=== PATIENT | male | born 1950 | race Caucasian/White ===

== ENCOUNTER 2018-12-25 12:59 | Inpatient (IN) ==
[2018-12-25] MEDS ORDERED: BOOSTRIX VACCINE IM ONE (13:11)
[2018-12-25] MEDS ORDERED: ZOFRAN IV ONE (13:11)
[2018-12-25] MEDS ORDERED: DILAUDID IV ONE (13:11)
--- NOTE | 2018-12-25 13:17 | PROVIDER DOCUMENTATION ---
HPI-General Adult - General Chief Complaint: Fall Stated Complaint: FALL Time Seen by Provider: 12/25/18 13:12 Source: patient, EMS - History of Present Illness -Gen Adult Nature of Presenting Problems: Pt. 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 He reports no LOC and no pain or injury other than the left lower extremity. Pt. reports he is diabetic and his tetanus is not up to date. Location of Pain/Injury: reports: lower extremity (Left). denies: none, head, face, mouth, neck, chest, upper extremity, hand(s), abdomen, back, pelvis, genitalia, feet, upper body, lower body, generalized, other Pain Radiation: reports: no radiation. denies: arm(s), back, buttocks, chest, epigastric, feet, groin, jaw, flank (L), legs (lower), LLQ, LUQ, neck, periumbilical, flank (R), RLQ, RUQ, shoulder(s), scapula, scrotal, sternal notch, suprapubic, legs (upper), urethral, vaginal, other Quality of Pain: reports: aching. denies: burning, cramping, pressure, stabbing, tightness Severity: reports: severe. denies: mild, moderate Onset/Duration: reports: abrupt, just prior to arrival Timing: reports: still present. denies: gone now, intermittent, getting worse Context/Activities at Onset: reports: moderate activity, recent trauma history. denies: none, light activity, vigorous activity, recent emotional stress, recent physical stress, possible bad food, cold exposure, eating, out of country travel, rest, sleep, sexual activity, other Modifying Factors: improves with: immobilization. worse with: movement Associated Symptoms: reports: joint pain (Left lower extremity). denies: denies symptoms, anxiety, arm pain, back/neck pain, chest pain, constipation, cough, diaphoresis, diarrhea, dizziness, EENT symptoms, fatigue, fever/chills, genitourinary problems, headaches, heartburn, loss of appetite, malaise, muscle aches, sinus congestion/drainage, nausea, rash, seizure, shortness of breath, sensory/motor loss, pain with inspiration, swelling/mass in abdomen, syncope, vomiting, weakness, trouble walking, other Similar Symptoms Previously?: No Recently seen or treated by another doctor?: No Review of Systems - Adult - REVIEW OF SYSTEMS - ADULT Constitutional: reports: no symptoms reported Eyes: reports: no symptoms reported Ears, Nose, Mouth & Throat: reports: no symptoms reported Cardiovascular: reports: no symptoms reported Respiratory: reports: no symptoms reported Gastrointestinal: reports: no symptoms reported Genitourinary: reports: no symptoms reported Musculoskeletal: reports: see HPI, joint pain (Left lower extremity). denies: back pain, muscle aches, neck pain Integumentary: reports: no symptoms reported Neurological: reports: no symptoms reported Psychiatric: reports: no symptoms reported Past History - Adult - PAST MEDICAL HISTORY-ADULT Review of Records: reports: Old Records Reviewed, Nursing Assessment Review, Medications Reviewed, Social history reviewed & non-contributory. - IMMUNIZATION STATUS Childhood Immunizations: See Nurse Assessment Flu Vaccine: See Nurse Assessment - FAMILY HISTORY Family History: reviewed, not pertinent - SOCIAL HISTORY Smoking: denies Physical Exam-General - PHYSICAL EXAM-ADULT Initial Vital Signs Reviewed: Yes - CONSTITUTIONAL General Appearance: alert, mild distress, obese. negative: anxious, slow to respond, obtunded, combative - EYES Eyes: PERRL/EOMI, pink conjunctivae - HEAD, EARS, NOSE, MOUTH & THROAT HENMT: normocephalic/atraumatic, moist mucous membranes - NECK Neck: non-tender, full range of motion, supple, normal inspection - RESPIRATORY Respiratory: lungs clear, normal breath sounds - CARDIOVASCULAR Cardiovascular: normal peripheral pulses, regular rate, rhythm, no edema - GASTROINTESTINAL (ABDOMEN) Abdominal Exam: normal bowel sounds, non tender, soft - LYMPHATIC Lymphatic: no adenopathy. negative: axilla node tender, cervical node tenderness - MUSCULOSKELETAL Back Exam: normal inspection, no CVA tenderness, no vertebral tenderness Extremity: deformity (Left lower extremity is deformed mid tibia), tenderness (Left lower extremity). negative: erythema, inflammation, swelling Peripheral Pulses: radial (R): 2+, radial (L): 2+ - SKIN Integumentary: normal color, normal turgor, warm/dry. negative: cyanosis, erythema, pallor, tenderness - NEUROLOGIC Neurologic: grossly normal, no motor/sensory deficits - PSYCHIATRIC Psych/Mental Status: normal mood/affect, normal thought content, normal thought process, oriented x 3. negative: anxious, paranoid, tearful Progress - PLAN OF CARE/RESULTS Progress/Plan/Lab Results: Vital Signs - 8 hr 12/25/18 13:01 Temperature 98.0 F Pulse Rate 84 Respiratory Rate 18 Blood Pressure 162/86 O2 Sat by Pulse Oximetry 99 Orders Category Date Time Status ANKLE COMPLETE LEFT [RAD] Stat Exams 12/25/18 13:12 Ordered LOWER LEG-LEFT [RAD] Stat Exams 12/25/18 13:12 Ordered Diph,Pertuss(Acell),Tet Vac/Pf [Boostrix Vaccine] Med 12/25/18 13:11 Once 0.5 ml IM .ONCE ONE Hydromorphone [Dilaudid] Med 12/25/18 13:11 Once 1 mg IV NOW ONE Ondansetron [Zofran] Med 12/25/18 13:11 Once 4 mg IV NOW ONE - XRAY 1 XRAY: Left XRAY Study: Tibia/Fibula XRAY Interpretation: Communuted tibia Fx and distal fibula Fx (Vince) - CONSULTS/PCP/HOSPITALIST Notification #1 *Consult/PCP/Hospitalist*: Dr. Brown Time Discussed: 13:45 Reason/Comments: Consult Consult Disposition: other (Admit to hospitilist and will do surgery tonight) #2 Consult: Scarlet Urias Time Discussed: 13:48 Reason/Comments: Admission Consult Disposition: Will see in ED, Admit Departure - Departure Date of Disposition Decision: 12/25/18 Time of Disposition Decision: 13:45 DIAGNOSIS: Tibia fracture Qualifiers: Encounter type: initial encounter Tibia location: shaft Fracture type: closed Fracture morphology: comminuted Fracture alignment: displaced Laterality: left Qualified Code(s): S82.252A - Displaced comminuted fracture of shaft of left tibia, initial encounter for closed fracture Fibula fracture Qualifiers: Encounter type: initial encounter Fibula location: distal Fracture type: closed Fracture morphology: unspecified fracture morphology Laterality: left Qualified Code(s): S82.832A - Other fracture of upper and lower end of left fibula, initial encounter for closed fracture Disposition: ADMITTED INPATIENT 09 Certified Medical Emergency: Emergent Condition: Stable - Critical Care Note This patient required my direct & personal management of CC.: No Attestation - Physician/ KYLIE Attestation Patient care was provided by Advanced Practice Provider:: Yes Advanced Practice Provider:: Honorio Clarke Advanced Practice Provider documentation review:: The Mid-level provider documentation, treatment plan and medical decision making was reviewed by the physician who agrees with all treatment and medical decision making by the MLP. The physician spent face to face time with patient:: No Advanced Practice Provider documentation review:: Supervising physician onsite and consulted in the evaluation and care of this patient. The physician did not have a face to face encounter with the patient.
[2018-12-25] MEDS ORDERED: DIPHTHERIA/TETANUS ADULT ONE (13:24)
--- NOTE | 2018-12-25 13:38 | Diag Imaging Result Doc PS360 ---
EXAM: LOWER LEG-LEFT 12/25/2018 HISTORY: injury TECHNIQUE: Left lower leg four views COMMENT: There is a comminuted fracture of the distal tibia and a fracture of the distal tibia which is also slightly comminuted. There is a fracture of the medial malleolus. Some hyperostosis of the posterior cortices of the tibia and fibula is present. There is plantar and dorsal spurring of the calcaneus. There are atherosclerotic calcifications. IMPRESSION: Fractures of the distal shafts of the tibia and fibula and the medial malleolus. Electronically signed by Buster Fisher 12/25/2018 1:36 PM
[2018-12-25 14:26] LABS: URINE SOURCE CLEAN CATCH
[2018-12-25 14:35] LABS: BILIRUBIN URINE NEGATIVE (NEGATIVE); BLOOD URINE MODERATE (NEGATIVE); COLOR YELLOW; GLUCOSE URINE NEGATIVE (NEGATIVE); KETONE URINE NEGATIVE (NEGATIVE); LEUKOCYTES URINE SMALL (NEGATIVE); NITRITE URINE NEGATIVE (NEGATIVE); PH URINE 5.5; PROTEIN URINE TRACE mg/dL (NEGATIVE); TURBIDITY URINE CLEAR (CLEAR); UROBILINOGEN URINE NORMAL (NORMAL)
[2018-12-25 14:36] LABS: BASO# 0.02 X1000 (0.0-0.2); BASO% 0.1 % (0.0-0.8); EOS# 0.07 X1000 (0.0-0.7); EOS% 0.4 % (0.0-10.0); HEMATOCRIT 40.6 % (42.0-52.0); HEMOGLOBIN 13.8 g/dL (14.0-18.0); IMM GRAN# 0.03 X1000 (0.0-0.04); IMM GRAN% 0.2 % (0.0-0.5); LYMPH# 1.16 X1000 (1.2-3.4); LYMPH% 6.7 % (20.5-51.1); MCV 85.3 FL (81-99); MONO# 0.85 X1000 (0.11-0.59); MONO% 4.9 % (1.7-9.3); MPV 9.7 FL (7.4-10.4); NEUT# 15.12 X1000 (1.4-6.5); NEUT% 87.7 % (42.2-75.2); PLT 239 X1000 (130-400); RBC 4.76 XMIL (4.7-6.1); RDW 14.2 % (11.5-14.5); WBC 17.25 X1000 (4.8-10.8)
[2018-12-25 14:43] LABS: UR EPITHELIAL CELLS <10 /HPF (<10); URINE BACTERIA NEGATIVE /HPF; URINE RBC 20-40 /HPF (<10)
[2018-12-25 14:52] LABS: URINE YEAST NONE SEEN
[2018-12-25 15:06] LABS: AGAP 18; BUN 22 mg/dL (8-22); CALCIUM 10.4 mg/dL (8.8-10.2); CHLORIDE 98 mmol/L (98-107); COSMO 288; CREATININE 0.9 mg/dL (0.7-1.2); ESTIMATED GFR > 60; GLUCOSE 185 mg/dL (70-104); POTASSIUM 4.3 mmol/L (3.5-5.1); SODIUM 140 mmol/L (136-145); TCO2 24 mmol/L (25-35); TOTAL BILIRUBIN 0.21 mg/dL (0.20-1.00)
[2018-12-25 15:07] LABS: ALB/GLOB RATIO 1.3; ALBUMIN 4.5 g/dL (3.5-5.0); ALKALINE PHOSPHATASE 62 U/L (32-122); GOT 21 U/L (10-34); GPT 23 U/L (10-44)
[2018-12-25] MEDS ORDERED: NS 1,000 ML IV ONE (15:32)
[2018-12-25] MEDS ORDERED: TYLENOL PO PRN (15:32)
[2018-12-25] MEDS ORDERED: MORPHINE IV PRN (15:32)
[2018-12-25] MEDS: HUMALOG SUBQ SCH (16:10)
[2018-12-25] MEDS ORDERED: KEFZOL 1 GM/D5W 1 GM/50 ML IVPB IV ONE (16:21)
--- NOTE | 2018-12-25 16:22 | HISTORY AND PHYSICAL ---
PRIMARY CARE PROVIDER: In [place]. CHIEF COMPLAINT: Left foot pain status post fall. HISTORY OF PRESENT ILLNESS: Mr. Grajeda is a 68-year-old gentleman who carries a past medical history of diabetes mellitus type 2, hypertension, hyperlipidemia. He reports that he is working out of town from [place]. He is working on a ship. He missed judged the step- down that was about 4 feet, felt like he landed wrong, and had immediate sharp pain to his left lower extremity. He was brought to the ED where he was found to have fractures of the distal shafts of the tibia and fibula and the medial malleolus. He does not report any dizziness, chest pain, or shortness of breath prior to his fall; it was just a misstep. He did not hit his head. He denies any headache, fever, chills, cough, chest pain, shortness of breath, dizziness, palpitations. No problems with urination or bowel movements. He will be admitted and taken to surgery this afternoon by Dr. Brown. We will place him on IV fluids, allow him occasional ice chips for dry mouth, as well as pain control. They did have trouble placing a regular Springer as well as a coude. We will have to notify surgery that he will need a Springer catheter placed while he is under. PAST MEDICAL HISTORY: 1. Diabetes mellitus. 2. Hypertension. 3. Hyperlipidemia. PAST SURGICAL HISTORY: 1. Left heart cath a couple years ago with clean arteries. 2. Right knee surgery. SOCIAL HISTORY: He lives in [place]. He is . He has 2 children that are grown and out of the house. No smoking. Occasional alcohol with a beer. No illicit drug use. 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 FAMILY HISTORY: Reviewed and noncontributory. ALLERGIES: No known drug allergies. HOME MEDICATIONS: 1. Cozaar 50 mg p.o. daily. 2. Hydrochlorothiazide 12.5 mg p.o. daily. 3. NPH 120 units subcutaneous daily. 4. Zocor 1 tablet p.o. daily. REVIEW OF SYSTEMS: Twelve-point review of systems completely negative except for those mentioned in the HPI. PHYSICAL EXAMINATION: VITAL SIGNS: Temperature is 97.5 degrees, heart rate 92, respirations 18, blood pressure 161/92, O2 is 95% on room air. GENERAL: Mr. Grajeda is a pleasant, 68-year-old male who is lying on the stretcher. He is currently getting his left lower extremity stabilized, in no acute distress. HEENT: Atraumatic, normocephalic. PERRL. NECK: Supple. Trachea midline. CARDIOVASCULAR: S1, S2 appreciated. No murmurs, gallops, rubs noted. RESPIRATORY: Lung sounds clear bilaterally. GASTROINTESTINAL: Soft, nontender, nondistended. Positive bowel sounds 4 quadrants. EXTREMITIES: Lower extremity, he is currently having it wrapped. He does have pedal pulses. He does have a small recent wound to the outside of his right toe. He believes this happened because he wears steel-toed boots when he misstepped, that was not there previously. SKIN: Warm, dry, and intact except for the left big toe wound that occurred during his misstep. NEUROLOGIC: No focal deficits noted. DIAGNOSTIC DATA: As per HPI. LABORATORY DATA: Currently pending. ASSESSMENT AND PLAN: 1. Fractures to the distal shaft of the tibia and fibula and the medial malleolus. Surgery per Dr. Brown. Will continue NPO status, IV fluids, pain management. 2. Diabetes mellitus. We will continue with patterned blood sugars, sliding scale insulin. 3. Hypertension. We will resume home medications when appropriate. 4. Hyperlipidemia. Will continue Zocor. 5. Further recommendations to follow physician evaluation, laboratory and diagnostic data. Patient seen and examined by me face to face, all the laboratory, vitals and images were reviewed, patient presented to the hospital with left lower extremity pain and deformity, this patient is from [place], while he was working here in town he fell, about 4 feet height and landed on his left leg, immediately he felt pain and came to the hospital, X Ray showed left tibia and perone fracture, on his shaft and malleolar area as well, orthopedic surgery will evaluate this patient, hopefully he will go for surgery later today or tomorrow, we will take care of his comorbidities, I agree with the RACING MECHANIC's assessment and plan. Andres Nash MD. Dictated by AMAN Dubose for Andres Galicia MD cc: MD Hao Saini MD [facility]
[2018-12-25] MEDS ORDERED: NEOSPORIN G.U. IRRIGANT ONE ×2 (17:13→17:36)
[2018-12-25] MEDS ORDERED: SENSORCAINE-MPF 0.5%/EPI 1:200,000 ONE (17:13)
[2018-12-25] MEDS ORDERED: KEFZOL 2 GM/D5W 2 GM/50 ML IVPB ONE (17:39)
[2018-12-25] MEDS ORDERED: DIPRIVAN 1% ONE (18:02)
[2018-12-25] MEDS ORDERED: QUELICIN (DOSE) ONE (18:04)
[2018-12-25] MEDS ORDERED: XYLOCAINE-MPF 2% ONE (18:04)
[2018-12-25] MEDS ORDERED: ROBINUL ONE (18:04)
[2018-12-25] MEDS ORDERED: FENTANYL ONE (18:33)
[2018-12-25] MEDS ORDERED: NEO-SYNEPHRINE ONE (19:10)
[2018-12-25] MEDS ORDERED: OFIRMEV 1000 MG/ISOTONIC SOLN 1,000 MG/100 ML BOTTLE ONE (19:57)
[2018-12-25] MEDS ORDERED: EPHEDRINE ONE (20:03)
[2018-12-25] MEDS ORDERED: ZOFRAN ONE (20:54)
[2018-12-25] MEDS ORDERED: DECADRON ONE (20:54)
[2018-12-25] MEDS ORDERED: DILAUDID PCA VIAL ONE (21:58)
[2018-12-25] MEDS ORDERED: NARCAN IV PRN (22:00)
[2018-12-25] MEDS ORDERED: DILAUDID-HP 30 MG in NS 27 ML IV PRN (22:00)
[2018-12-25] MEDS ORDERED: NARCAN 0.4 MG in LR 1,000 ML IV PRN (22:00)
[2018-12-25] MEDS ORDERED: ZOFRAN IV PRN (22:00)
--- NOTE | 2018-12-25 22:59 | OPERATIVE NOTE ---
PROCEDURE DATE: 12/25/2018 PREOPERATIVE DIAGNOSIS: Left leg comminuted segmental tibia fracture with a trimalleolar ankle fracture. POSTOPERATIVE DIAGNOSIS: Left leg comminuted segmental tibia fracture with a trimalleolar ankle fracture. PROCEDURE: Open reduction internal fixation of left trimalleolar ankle fracture and open reduction intramedullary nailing of left tibia fracture. ANESTHESIA: General. SURGEON: Hao Brown MD. ASSEMBLER SHOW MOTOR: Smiley Eduardo PA-C, who was present throughout the case whose assistance was critical for exposure, placement of the implant, and closure. Her assistance was necessary for successful completion of the case. BLOOD LOSS: Minimal. TOURNIQUET TIME: Approximately an hour and a half. DESCRIPTION OF PROCEDURE: Patient was brought to the operative suite and placed in supine position. After successful administration of general anesthesia, a well-padded tourniquet was placed on the left proximal thigh. The left lower extremity was prepped and draped in usual sterile fashion. The leg was exsanguinated. Tourniquet was insufflated to 350 torr. Attention was directed first to the posterior malleolar. It involved approximately one- half of the joint surface. We were able to reduce this with traction and dorsal flexion of the foot and then through stab incision, two 4.0 cannulated screw guide pins were placed across the fracture. Once these were verified to be in good position, proper lengths were measured, and then they were driven into place. Excellent purchase of the screws and reduction of the fracture was obtained. Attention was then directed to the lateral malleolus. A longitudinal incision was made overlying the lateral malleolus, being sure to protect the superficial peroneal nerve. The lateral malleolus fracture was then cleaned and reduced. It was found to be a comminuted fracture as well with 3 fragments. These were all reduced. Interfragmentary screws were placed and a 1/3 tubular plate was placed with 3 screws distally and 3 screws proximally on each end that were locking. Excellent reduction of the fibula was obtained as well. Attention was then directed to the medial malleolus fracture. A longitudinal incision was made overlying the medial malleolus, dissected sharply through the skin down to the fracture site. It was found to be a clean fracture and was well reduced, and therefore two 4.0 cannulated screws were placed across the fracture. Excellent reduction was obtained. Attention was then directed to the tibia. A longitudinal incision was made on the medial border of the patellar tendon, dissected sharply through the skin and peritenon and then through the fascia and then a guide pin was placed in the center of the tibia. Once this was positioned, it was reamed with a cannulated reamer, and a ball-tip guide pin was passed across the fracture site and buried in the distal metaphysis. The fracture was held reduced with a tenaculum clamp. Once this was achieved, the tourniquet was deflated, and the canal was serially reamed to a 11-2 to accept a 10 nail. It was measured to 330 mm. A 330 mm nail was then driven into place. Once it was verified to be in good position on AP and lateral images using the proximal guide through stab incisions, the proximal locking screws were placed. Then the proximal guide was removed. The knee was taken out into extension. The tenaculum was released, and then using the perfect circles technique through stab incisions medially, the distal locking screws were placed. Excellent reduction of the fractures and placement of the hardware was obtained on AP and lateral images. The wounds were all copiously irrigated. The fascia was all closed with 0 Vicryl suture. The skin edges were approximated with 2-0 Vicryl and closed with skin angel except for laterally where the skin was under significant tension, and there was significant swelling. Therefore, far-near, near-far retention sutures were placed at least in the middle portion of the incision. Angel were used to reinforce the repair. The leg was then cleaned, and a sterile dressing and a well-padded posterior splint with a stirrup and a cooling blanket was applied. The patient tolerated the procedure well without complication. At the end of the procedure, all counts were correct x2. The patient was transferred to the recovery room in stable condition. cc: MD YESICA Fuentes
[2018-12-26] MEDS: HUMALOG SUBQ SCH ×5 (01:49→20:39)
[2018-12-26] MEDS: KEFZOL 1 GM/D5W 1 GM/50 ML IVPB IV SCH ×3 (02:12→18:48)
[2018-12-26] MEDS: PERIDEX MT SCH ×3 (03:20→20:39)
[2018-12-26] MEDS: COZAAR PO SCH ×3 (03:20→20:39)
[2018-12-26] MEDS: LR 1,000 ML IV SCH ×3 (05:51→09:48)
[2018-12-26 06:27] LABS: BASO# 0.01 X1000 (0.0-0.2); BASO% 0.1 % (0.0-0.8); HEMATOCRIT 33.4 % (42.0-52.0); HEMOGLOBIN 11.1 g/dL (14.0-18.0); IMM GRAN# 0.02 X1000 (0.0-0.04); IMM GRAN% 0.2 % (0.0-0.5); LYMPH# 1.04 X1000 (1.2-3.4); LYMPH% 7.9 % (20.5-51.1); MCH 28.9 PG (27-31); MCHC 33.2 g/dL (33-37); MONO# 1.01 X1000 (0.11-0.59); MONO% 7.6 % (1.7-9.3); MPV 9.8 FL (7.4-10.4); NEUT# 11.15 X1000 (1.4-6.5); NEUT% 84.2 % (42.2-75.2); PLT 196 X1000 (130-400); RBC 3.84 XMIL (4.7-6.1); RDW 14.1 % (11.5-14.5); WBC 13.23 X1000 (4.8-10.8)
[2018-12-26 06:37] LABS: AGAP 11; BUN 16 mg/dL (8-22); CHLORIDE 98 mmol/L (98-107); COSMO 276; CREATININE 0.8 mg/dL (0.7-1.2); ESTIMATED GFR > 60; GLUCOSE 220 mg/dL (70-104); POTASSIUM 4.6 mmol/L (3.5-5.1); SODIUM 134 mmol/L (136-145); TCO2 25 mmol/L (25-35)
[2018-12-26 06:39] LABS: HEMOGLOBIN A1C 7.2 % (4.8-6.0)
--- NOTE | 2018-12-26 07:19 | ORTHOPAEDICS PROGRESS NOTE ---
DATE: 12/26/2018 SUBJECTIVE: Corey Grajeda is a 68-year-old male who is postoperative day 1 from an ORIF of his left ankle and intramedullary nailing of his left tibia. He has no complaints. His pain is controlled with his VP GLOBAL. His foot is elevated. He can flex and extend his toes. He has brisk capillary refill and intact sensation to light touch. His vital signs are stable. He is afebrile. ASSESSMENT: Stable status post day 1 from surgery of his left leg. PLAN: We will get therapy working with him today, try to get him mobile over the weekend. We will try to get him off of the VP GLOBAL and hopefully by the first part of the week, we will be able to get him back home to [place]. cc: Hao Brown MD
[2018-12-26] MEDS ORDERED: GLUCOPHAGE XR PO SCH (08:00)
[2018-12-26] MEDS: HUMULIN 70/30 SUBQ SCH ×2 (08:25→16:34)
[2018-12-26] MEDS: 1/2 NS 1,000 ML IV SCH (08:26)
[2018-12-26] MEDS ORDERED: NARCAN IV PRN (08:30)
[2018-12-26] MEDS ORDERED: DILAUDID PCA VIAL IV PRN (08:30)
[2018-12-26] MEDS ORDERED: NARCAN 0.4 MG in LR 1,000 ML IV PRN (08:30)
[2018-12-26] MEDS ORDERED: ZOFRAN IV PRN (08:30)
[2018-12-26] MEDS ORDERED: HUMULIN 70/30 SUBQ SCH (09:00)
[2018-12-26] MEDS: ZOCOR PO SCH (09:43)
[2018-12-26] MEDS: GLUCOPHAGE XR PO SCH (16:35)
[2018-12-26] MEDS: HYDROCHLOROTHIAZIDE PO SCH (16:35)
[2018-12-26] MEDS: ZOFRAN IV PRN (19:24)
--- NOTE | 2018-12-26 19:56 | PROGRESS NOTE ---
DATE: 12/26/2018 SUBJECTIVE: This patient is resting comfortably in bed. I evaluated this patient in the morning. I put this patient back on some of his home medications, and I readjusted others. He will receive insulin and also metformin. He is on a CLEANING AND WASHING EQUIPMENT OPERATOR pump. We will continue with same management. OBJECTIVE: Vital Signs: Temperature 98.3 degrees, pulse 91, respiratory rate 26, blood pressure 141/70, oxygen saturation 93% on room air. HEENT: Head normocephalic. No trauma. PERRLA. Neck: Supple. No JVD. No masses. Central trachea. Chest: Clear to auscultation. No wheezing. No rales. Abdomen: Soft, nontender, nondistended. No hepatosplenomegaly. Extremities: Left lower extremity with a splint. He is able to move his toes. I do not see any vascular or neurological problem. Neurological examination: The patient is alert and oriented x3. No focal deficits. LABORATORY DATA: WBC 13.2, hemoglobin 11.1, hematocrit 33.4, platelets 196,000. Sodium 134, potassium 4.6, chloride 98, bicarbonate 25, BUN 16, creatinine 0.8, glucose 220, calcium 9, hemoglobin A1c 7.2. ASSESSMENT AND PLAN: 1. Left comminuted segmental tibia fracture with trimalleolar ankle fracture, status post open reduction and internal fixation of the left trimalleolar ankle fracture and open reduction and intramedullary nailing of the left tibia fracture postoperative day #1. This patient seems to be tolerating the procedure well. He is on a CLEANING AND WASHING EQUIPMENT OPERATOR pump. He was not complaining of pain when I saw him. He is able to move his toes. I did not see any vascular or neurological problems. We will keep the extremity elevated as well. 2. Type 2 diabetes, hemoglobin A1c 7.1, well controlled. Continue with some of his home medications. 3. Hypertension. I put this patient back on losartan and also hydrochlorothiazide, which are the medications listed for this patient. 4. Hyperlipidemia. Continue with Zocor. The plan is to keep this patient probably this weekend. I would start with physical therapy. Orthopedic surgery on board. Hopefully, we also will stop the CLEANING AND WASHING EQUIPMENT OPERATOR pump at some point and continue with only as needed and p.o. medication. cc: Andres Galicia MD
[2018-12-27] MEDS: ZOFRAN IV PRN ×2 (00:14→04:39)
[2018-12-27] MEDS ORDERED: PHENERGAN IV PRN (01:23)
[2018-12-27] MEDS ORDERED: SODIUM CHLORIDE 0.9% INJ PRN (01:23)
[2018-12-27] MEDS: NS 1,000 ML IV SCH (05:38)
[2018-12-27] MEDS: LOVENOX SUBQ SCH (06:53)
[2018-12-27] MEDS: HUMULIN 70/30 SUBQ SCH ×2 (06:53→16:24)
[2018-12-27] MEDS: HUMALOG SUBQ SCH ×3 (06:54→16:26)
[2018-12-27] MEDS: GLUCOPHAGE XR PO SCH ×2 (08:13→16:23)
[2018-12-27] MEDS: PERIDEX MT SCH ×3 (08:13→21:00)
[2018-12-27] MEDS: ZOCOR PO SCH (08:15)
[2018-12-27] MEDS: COZAAR PO SCH ×3 (08:15→21:00)
[2018-12-27] MEDS ORDERED: PROTONIX PO ONE (10:02)
[2018-12-27 10:36] LABS: BASO# 0.01 X1000 (0.0-0.2); BASO% 0.1 % (0.0-0.8); HEMATOCRIT 31.8 % (42.0-52.0); HEMOGLOBIN 10.5 g/dL (14.0-18.0); IMM GRAN# 0.03 X1000 (0.0-0.04); IMM GRAN% 0.2 % (0.0-0.5); LYMPH# 1.15 X1000 (1.2-3.4); LYMPH% 7.9 % (20.5-51.1); MCH 29.2 PG (27-31); MCV 88.3 FL (81-99); MONO# 1.29 X1000 (0.11-0.59); MONO% 8.8 % (1.7-9.3); MPV 9.9 FL (7.4-10.4); NEUT# 12.11 X1000 (1.4-6.5); PLT 174 X1000 (130-400); RDW 14.2 % (11.5-14.5); WBC 14.59 X1000 (4.8-10.8)
[2018-12-27 10:58] LABS: AGAP 10; BUN 18 mg/dL (8-22); CALCIUM 8.1 mg/dL (8.8-10.2); CHLORIDE 92 mmol/L (98-107); COSMO 278; CREATININE 0.8 mg/dL (0.7-1.2); ESTIMATED GFR > 60; GLUCOSE 278 mg/dL (70-104); POTASSIUM 3.7 mmol/L (3.5-5.1); SODIUM 133 mmol/L (136-145); TCO2 31 mmol/L (25-35)
[2018-12-27] MEDS: HYDROCHLOROTHIAZIDE PO SCH (11:13)
--- NOTE | 2018-12-27 13:14 | PROGRESS NOTE ---
DATE: 12/27/2018 SUBJECTIVE: Patient is resting comfortably in bed. He had episodes of nausea and vomiting during the night. He believes it was due to his last meal yesterday night, but today he is tolerating p.o. I will put this patient on PPIs, and I will basically continue with same management for now. OBJECTIVE: Vital Signs: Temperature 97.8 degrees, pulse 104, respiratory rate 16, blood pressure 120/64, oxygen saturation 95% on room air. HEENT: Head normocephalic, no trauma. PERRLA. Neck: Supple. No JVD. No masses. Central trachea. Chest: Clear to auscultation. No wheezing. No rales. Abdomen: Soft, nontender, nondistended. No hepatosplenomegaly. Extremities: Left lower extremity with a splint. He is able to move his toes. I do not see any vascular or neurological problem at this moment. Neurological examination: The patient is alert and oriented x3. No focal deficits. LABORATORY: WBC 14.5, hemoglobin 10.5, hematocrit 31.8, platelets 174. Sodium 133, potassium 3.7, chloride 92, bicarbonate 31. BUN 18, creatinine 0.8, glucose 278, calcium 8.1. ASSESSMENT AND PLAN: 1. Left comminuted segmental tibia fracture with trimalleolar ankle fracture, status post open reduction and internal fixation of the left trimalleolar ankle fracture and open reduction and intramedullary nailing of the left tibia fracture postoperative day #2. This patient seems to be tolerating well the procedure. He is on a FOOD SERVER pump. He has not been complaining of pain too much. I do not see any vascular or neurological problems. 2. Type 2 diabetes. Hemoglobin A1c 7.1, is well controlled. The blood sugar has been elevated during this hospitalization, but he started having some episodes of nausea and vomiting during the night, so I will just monitor today and I will readjust this in the morning. 3. Hypertension. Continue with same management. 4. Hyperlipidemia. Continue with Zocor. The plan is to keep this patient over the weekend. We will start physical therapy. Orthopedic Surgery on board. We will remove the Springer catheter today. He has been placed on PPIs; we will readjust his medications in the morning again. cc: Andres Galicia MD
--- NOTE | 2018-12-27 14:10 | ORTHOPAEDICS PROGRESS NOTE ---
DATE: 12/27/2018 Mr. Grajeda is seen status post ORIF of his distal tibia and ankle fracture. Presently, he is doing well. Vital signs are stable. His splint is clean and dry. He appears to be motor and sensory intact. We will discontinue his Springer today. He still requiring his BOBBIN STRIPPER, and we will leave that until tomorrow. We will check him again tomorrow as needed. cc: Aubrey Coombs MD
[2018-12-28] MEDS: HUMALOG SUBQ SCH ×5 (04:42→22:04)
[2018-12-28] MEDS: LR 1,000 ML IV SCH (04:44)
[2018-12-28] MEDS: 1/2 NS 1,000 ML IV SCH (04:44)
[2018-12-28] MEDS: NS 1,000 ML IV SCH ×2 (04:44→07:46)
[2018-12-28] MEDS: PROTONIX PO SCH (06:17)
[2018-12-28] MEDS: LOVENOX SUBQ SCH (06:17)
[2018-12-28 06:27] LABS: BASO# 0.01 X1000 (0.0-0.2); BASO% 0.1 % (0.0-0.8); HEMATOCRIT 29.5 % (42.0-52.0); HEMOGLOBIN 9.6 g/dL (14.0-18.0); IMM GRAN# 0.03 X1000 (0.0-0.04); IMM GRAN% 0.2 % (0.0-0.5); LYMPH# 1.61 X1000 (1.2-3.4); LYMPH% 12.4 % (20.5-51.1); MCHC 32.5 g/dL (33-37); MCV 89.1 FL (81-99); MONO# 1.32 X1000 (0.11-0.59); MONO% 10.2 % (1.7-9.3); NEUT% 77.1 % (42.2-75.2); PLT 170 X1000 (130-400); RBC 3.31 XMIL (4.7-6.1); RDW 14.1 % (11.5-14.5); WBC 12.97 X1000 (4.8-10.8)
[2018-12-28 06:58] LABS: AGAP 5; BUN 16 mg/dL (8-22); CALCIUM 8.2 mg/dL (8.8-10.2); CHLORIDE 99 mmol/L (98-107); COSMO 283; CREATININE 0.7 mg/dL (0.7-1.2); ESTIMATED GFR > 60; GLUCOSE 210 mg/dL (70-104); POTASSIUM 3.5 mmol/L (3.5-5.1); SODIUM 138 mmol/L (136-145); TCO2 34 mmol/L (25-35)
[2018-12-28] MEDS: HUMULIN 70/30 SUBQ SCH ×4 (06:59→16:05)
[2018-12-28] MEDS: GLUCOPHAGE XR PO SCH ×2 (08:02→16:01)
[2018-12-28] MEDS: PERIDEX MT SCH ×2 (08:03→20:50)
[2018-12-28] MEDS: ZOCOR PO SCH (08:03)
[2018-12-28] MEDS: COZAAR PO SCH ×2 (08:03→20:50)
[2018-12-28] MEDS ORDERED: DILAUDID IV PRN (09:38)
--- NOTE | 2018-12-28 09:59 | PROGRESS NOTE ---
DATE: 12/28/2018 SUBJECTIVE: The patient is resting comfortably in bed. No more episodes of nausea, vomiting. As per the patient, he uses insulin 70/30 three times a day. His hemoglobin A1c is 7.2. He uses the 70/30 insulin before breakfast, lunch, and dinner. I will put him back on his regimen, and I will continue to monitor. OBJECTIVE: Vital Signs: Temperature 98.1 degrees, pulse 82, respiratory rate 16, blood pressure 138/68, oxygen saturation 93 on room air. HEENT: Head normocephalic. No trauma. PERRLA. Neck: Supple. No JVD. No masses. Central trachea. Chest: Clear to auscultation. No wheezing. No rales. Abdomen: Soft, nontender, nondistended. No hepatosplenomegaly. Extremities: Left lower extremity with a splint. He is able to move his toes. I do not see any vascular or neurological problems on his toes. Neurological: This patient is alert and oriented x3. No focal deficits. LABORATORY DATA: WBC 12.9, hemoglobin 9.6, hematocrit 29.5, platelets 170,000. Sodium 138, potassium 3.5, chloride 99, bicarbonate 34, BUN 16, creatinine 0.7, glucose 210, calcium 8.2. ASSESSMENT AND PLAN: 1. Left comminuted segmental tibial fracture with 3 malleolar ankle fractures, status post open reduction and internal fixation of the left 3 malleolar ankle fractures, and open reduction and intramedullary nailing of the left tibial fracture, postoperative day #3. This patient seems to be tolerating the treatment. He is still getting treatment through a patient- controlled analgesia pump. He is not complaining of pain at this moment. I do not see any vascular or neurological issues today. 2. Type 2 diabetes. Hemoglobin A1c is 7.2, well controlled. I will put this patient back on his home medications, including insulin 70/30 three times a day. 3. Hypertension. Continue with the same management. 4. Hyperlipidemia. Continue with Zocor. The plan is to keep this patient over the weekend. We have started already physical therapy. Orthopedic Surgery on board. The Springer has been removed yesterday. No problem urinating. cc: Andres Galicia MD
--- NOTE | 2018-12-28 10:00 | ORTHOPAEDICS PROGRESS NOTE ---
DATE: 12/28/2018 SUBJECTIVE: Mr. Grajeda is seen status post ORIF of his leg fracture. Presently, he is afebrile with stable vital signs. His splint is clean and dry. There is good capillary refill. Will plan on discontinuing his DELICATESSEN SLICER today. He can continue to mobilize as tolerated. Dr. Brown will be back to see him tomorrow for discharge planning. cc: Aubrey Coombs MD
--- NOTE | 2018-12-28 10:56 | Diag Imaging Result Doc PS360 ---
X-ray left lower leg - 12/28/2018 INDICATION: S/P surgery/ pain TECHNIQUE: Three views COMPARISON: 12/25/2018 FINDINGS: The entire lower leg was imaged. There has been placement of an intramedullary tibial tyra and a lateral tibial sideplate. There is also a medial malleolus screw in good position. No hardware fracture or loosening. IMPRESSION: No complication. Electronically signed by Tanner Denny 12/28/2018 10:53 AM
[2018-12-28] MEDS ORDERED: HUMULIN 70/30 SUBQ SCH (12:00)
[2018-12-28] MEDS: HYDROCHLOROTHIAZIDE PO SCH (16:01)
[2018-12-28] MEDS: MIRALAX PO SCH ×2 (16:02→20:50)
[2018-12-28] MEDS: NORCO-10 PO PRN (21:00)
[2018-12-29] MEDS: NORCO-10 PO PRN ×6 (02:58→23:22)
[2018-12-29 06:32] LABS: BASO# 0.02 X1000 (0.0-0.2); BASO% 0.2 % (0.0-0.8); EOS# 0.37 X1000 (0.0-0.7); EOS% 3.3 % (0.0-10.0); HEMATOCRIT 29.7 % (42.0-52.0); HEMOGLOBIN 9.5 g/dL (14.0-18.0); IMM GRAN# 0.02 X1000 (0.0-0.04); IMM GRAN% 0.2 % (0.0-0.5); LYMPH% 21.5 % (20.5-51.1); MCH 28.3 PG (27-31); MCV 88.4 FL (81-99); MONO# 1.12 X1000 (0.11-0.59); MPV 10.3 FL (7.4-10.4); NEUT# 7.25 X1000 (1.4-6.5); NEUT% 64.8 % (42.2-75.2); PLT 182 X1000 (130-400); RBC 3.36 XMIL (4.7-6.1); RDW 14.1 % (11.5-14.5); WBC 11.18 X1000 (4.8-10.8)
[2018-12-29] MEDS: HUMALOG SUBQ SCH ×4 (06:55→23:04)
[2018-12-29] MEDS: PROTONIX PO SCH (07:02)
[2018-12-29] MEDS: LOVENOX SUBQ SCH (07:03)
[2018-12-29] MEDS: HUMULIN 70/30 SUBQ SCH ×3 (07:04→17:55)
[2018-12-29] MEDS: NS 1,000 ML IV SCH (07:17)
[2018-12-29 07:21] LABS: AGAP 9; BUN 13 mg/dL (8-22); CALCIUM 7.8 mg/dL (8.8-10.2); CHLORIDE 101 mmol/L (98-107); COSMO 274; CREATININE 0.6 mg/dL (0.7-1.2); ESTIMATED GFR > 60; GLUCOSE 96 mg/dL (70-104); POTASSIUM 3.6 mmol/L (3.5-5.1); SODIUM 137 mmol/L (136-145); TCO2 27 mmol/L (25-35)
[2018-12-29] MEDS: MIRALAX PO SCH ×2 (08:12→22:59)
[2018-12-29] MEDS: ZOCOR PO SCH (08:13)
[2018-12-29] MEDS: PERIDEX MT SCH ×2 (08:13→23:00)
[2018-12-29] MEDS: COZAAR PO SCH ×2 (08:13→23:00)
[2018-12-29] MEDS: GLUCOPHAGE XR PO SCH ×2 (08:13→17:55)
[2018-12-29] MEDS ORDERED: DULCOLAX PR ONE (09:02)
--- NOTE | 2018-12-29 10:33 | PROGRESS NOTE ---
DATE: 12/29/2018 SUBJECTIVE: The patient is resting comfortably in bed. His pain has been better controlled. Hemoglobin A1c 7.2. His blood sugar is better controlled as well. No neurological or vascular lesion on his left leg. OBJECTIVE: Vital Signs: Temperature 98.4 degrees, pulse 78, respiratory rate 16, blood pressure 138/74, oxygen saturation 93 on room air. HEENT: Head normocephalic. No trauma. PERRLA. Neck: Supple. No JVD. No masses. Central trachea. Chest: Clear to auscultation. No wheezing. No rales. Abdomen: Soft, nontender, nondistended. No hepatosplenomegaly. Extremities: Left lower extremity with a splint. No signs of bleeding. He is able to move his toes. I do not see any vascular or neurological problem on his toes. Neurological Examination: Completely alert and oriented x3. No focal deficits. Laboratory: WBC 11.1, hemoglobin 9.5, hematocrit 29.7, platelets 182,000. Sodium 137, potassium 3.6, chloride 101, bicarbonate 27, BUN 13, creatinine 0.6, glucose 96, calcium 7.8. ASSESSMENT AND PLAN: 1. Left comminuted segmental tibial fracture with trimalleolar ankle fracture, status post open reduction and internal fixation of the trimalleolar ankle fracture and open reduction and intramedullary nailing of the left tibial fracture, postoperative day #4. This patient seems to be tolerating the procedure. He is not on a VAPOR [employer] pump at this moment. He is not complaining of pain right now. I do not see any vascular or neurological problems. I will wait for orthopedic surgery recommendations. 2. Type 2 diabetes. Hemoglobin A1c 7.2, well controlled. I put this patient back on his home medications including insulin 70/30 three times a day and it seems to be working fine. 3. Hypertension. Continue with the same management. 4. Hyperlipidemia. Continue with Zocor. 5. This patient seems to be stable. We have requested a front wheel walker and I believe also a wheelchair for this patient. He is stable. I will wait for orthopedic surgery department recommendations to send this patient home. He is not from [place]. He is coming from [place] and he is planning to follow up over there. cc: Andres Galicia MD
[2018-12-29] MEDS: HYDROCHLOROTHIAZIDE PO SCH (13:28)
--- NOTE | 2018-12-29 19:52 | ORTHOPAEDICS PROGRESS NOTE ---
DATE: 12/29/2018 SUBJECTIVE: Mr. Grajeda is a 68-year-old male who is postoperative day 4 from an open reduction and internal fixation of his left ankle and intramedullary nailing of his left tibia. He has no complaints. OBJECTIVE: He is a well developed, well nourished male. He is alert and cooperative exam. His vital signs are stable. He is afebrile. His hematocrit is 29.7%. His hemoglobin is 9.5. ASSESSMENT: Stable left leg. PLAN: We will continue working with physical therapy. He will likely go home on Saturday. We will change his dressing tomorrow. cc: Hao Brown MD
[2018-12-30 05:38] LABS: BASO# 0.02 X1000 (0.0-0.2); BASO% 0.2 % (0.0-0.8); EOS# 0.54 X1000 (0.0-0.7); EOS% 4.4 % (0.0-10.0); HEMATOCRIT 32.2 % (42.0-52.0); HEMOGLOBIN 10.6 g/dL (14.0-18.0); IMM GRAN# 0.03 X1000 (0.0-0.04); IMM GRAN% 0.2 % (0.0-0.5); LYMPH# 2.51 X1000 (1.2-3.4); LYMPH% 20.7 % (20.5-51.1); MCH 28.8 PG (27-31); MCHC 32.9 g/dL (33-37); MCV 87.5 FL (81-99); MONO% 8.2 % (1.7-9.3); MPV 9.3 FL (7.4-10.4); NEUT# 8.05 X1000 (1.4-6.5); NEUT% 66.3 % (42.2-75.2); PLT 215 X1000 (130-400); RBC 3.68 XMIL (4.7-6.1); WBC 12.15 X1000 (4.8-10.8)
[2018-12-30 06:01] LABS: AGAP 11; BUN 12 mg/dL (8-22); CALCIUM 8.3 mg/dL (8.8-10.2); CHLORIDE 99 mmol/L (98-107); COSMO 275; CREATININE 0.7 mg/dL (0.7-1.2); ESTIMATED GFR > 60; GLUCOSE 117 mg/dL (70-104); POTASSIUM 4.2 mmol/L (3.5-5.1); SODIUM 137 mmol/L (136-145); TCO2 27 mmol/L (25-35)
[2018-12-30] MEDS: LOVENOX SUBQ SCH (07:25)
[2018-12-30] MEDS: PROTONIX PO SCH (07:25)
[2018-12-30] MEDS: NORCO-10 PO PRN ×2 (07:26→20:09)
[2018-12-30] MEDS: NS 1,000 ML IV SCH (07:27)
[2018-12-30] MEDS: HUMULIN 70/30 SUBQ SCH ×3 (07:28→17:49)
[2018-12-30] MEDS: HUMALOG SUBQ SCH ×3 (07:28→21:00)
[2018-12-30] MEDS: MIRALAX PO SCH (08:59)
[2018-12-30] MEDS: PERIDEX MT SCH (09:00)
[2018-12-30] MEDS: GLUCOPHAGE XR PO SCH ×2 (09:00→17:47)
[2018-12-30] MEDS: COZAAR PO SCH ×2 (09:00→20:09)
[2018-12-30] MEDS: ZOCOR PO SCH (09:01)
--- NOTE | 2018-12-30 09:58 | ORTHOPAEDICS PROGRESS NOTE ---
DATE: 12/30/2018 SUBJECTIVE: Corey Grajeda is a 68-year-old male who is postop from his tibial nail with an ORIF of his ankle. He has no complaints. OBJECTIVE: He is a well-developed, well-nourished male. He is alert, oriented, and cooperative to exam. He can flex and extend his toes, and has brisk capillary refill and intact sensation to light touch. ASSESSMENT: Stable left leg. PLAN: Will continue working with therapy with him today. Hopefully, he can go home tomorrow. cc: Hao Brown MD
--- NOTE | 2018-12-30 13:27 | PROGRESS NOTE ---
DATE: 12/30/2018 He was from [place], doing work up here. He is a 68-year-old who carries a past medical history of diabetes mellitus type 2, hypertension, hyperlipidemia. 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 He stepped down wrong and had multiple fractures in his left leg, distal shaft of the tibia, fibula, and medial malleolus. He underwent surgery per Dr. Brown. Had a left leg comminuted segmental tibial fracture with trimalleolar ankle fracture and is in recovery now. He says he is hoping he gets to go home tomorrow. I think the plan is try and put a cast on it. PHYSICAL EXAMINATION: He remains afebrile, temperature 99.7 degrees, pulse 80, respirations 16, blood pressure 149/70. Pupils are equal and round. Lungs are clear in all lung stack. Cardiovascular Examination: Regular rhythm and rate without murmur or S3. Abdomen is soft. Skin is warm and dry. Urine output 3300 mL. Blood sugars 191, 134, 198. ASSESSMENT AND PLAN: 1. Left comminuted segmental tibial fracture and trimalleolar ankle fracture, status post open reduction with internal fixation of the trimalleolar ankle fracture and open reduction and intramedullary nailing of the left tibial fracture. This is postoperative day 5. Patient seems to be tolerating the procedure well on the [employer] pump and pain control seems to be good. He is hoping he gets a cast on it tomorrow and gets to go home. 2. Diabetes mellitus type 2. Hemoglobin A1c was 7.2. Continue pattern of sugars. He gets insulin 70/30 three times a day. It seems to be working well. 3. Hypertension. 4. Hyperlipidemia. 5. Nutrition is good and trying to make arrangements for him to go home. REVIEW OF ORDERS: He is on hydrocodone 10 mg q.3 hours p.r.n., getting normal saline at 42 mL an hour, Tylenol 650 q.6 hours p.r.n., Lovenox 40 mg subcutaneous daily, hydrochlorothiazide 12.5 mg once a day, and he gets his insulin 70/30 I think 40 units with each meal, metformin 750 mg b.i.d. He says his bowels are doing a little better. He is on MiraLAX 17 g p.o. b.i.d. and takes Zocor 10 mg a day. cc: Vince Sheets MD
[2018-12-30] MEDS: HYDROCHLOROTHIAZIDE PO SCH (13:55)
--- NOTE | 2018-12-30 14:19 | DISCHARGE SUMMARY ---
ADMISSION DATE: 12/25/2018 DISCHARGE DATE: 12/30/2018 DISCHARGE DIAGNOSIS: Left trimalleolar ankle fracture and comminuted tibial shaft fracture status post open reduction and internal fixation of his left trimalleolar ankle fracture and open reduction and intramedullary nailing of his left tibia. DISCHARGE MEDICATIONS: See discharge medication list. DISPOSITION: The patient discharged home with instructions to continue his Lovenox, elevate and ice his leg and follow up with his local orthopedist as soon as he can. Instructed to return for any signs or symptoms of infection or deep venous thrombosis. HOSPITAL COURSE: On the day of admission, the patient underwent open reduction and internal fixation of his left ankle and intramedullary nailing of his tibia. His postoperative course was unremarkable. It was complicated only by his diabetic control and slow progress with physical therapy. At discharge, he is afebrile, tolerating a regular diet, ambulating with physical therapy. His foot is neurovascularly intact. He can flex and extend his toes. He has brisk capillary refill and intact sensation. DISPOSITION: He is discharged home in stable condition with instructions to follow up as described above. cc: Hao Brown MD [facility]
[2018-12-30] MEDS ORDERED: DULCOLAX PR ONE (17:38)
[2018-12-30] MEDS: LACTULOSE PO SCH (17:48)
[2018-12-31] MEDS: NORCO-10 PO PRN ×2 (03:47→10:31)
[2018-12-31] MEDS: LACTULOSE PO SCH ×2 (04:57→09:41)
[2018-12-31] MEDS: PERIDEX MT SCH ×2 (04:58→09:33)
[2018-12-31] MEDS: MIRALAX PO SCH ×2 (04:58→09:35)
[2018-12-31] MEDS: PROTONIX PO SCH (06:29)
[2018-12-31] MEDS: LOVENOX SUBQ SCH (06:29)
[2018-12-31] MEDS: HUMALOG SUBQ SCH (06:38)
[2018-12-31 08:17] VITALS: BP 143/65
[2018-12-31] MEDS: HUMULIN 70/30 SUBQ SCH (09:30)
[2018-12-31] MEDS: GLUCOPHAGE XR PO SCH (09:33)
[2018-12-31] MEDS: COZAAR PO SCH (09:34)
[2018-12-31] MEDS: ZOCOR PO SCH (09:34)
--- NOTE | 2018-12-31 10:32 | PROGRESS NOTE ---
DATE: 12/31/2018 SUBJECTIVE: Mr. Grajeda is ready go home. He has his cast on his on, and so we are getting arrangements made trying to get a copy of his chart to take with him. OBJECTIVE: Temperature 98.3 degrees, pulse 80, respirations 20, blood pressure 143/65. Pupils are equal and round. Lungs are clear in all lung stack. Cardiovascular: Regular rhythm and rate without murmur or S3. Abdomen is soft. Skin is warm and dry. Urine Output: 2800 mL. ASSESSMENT AND PLAN: 1. Left comminuted segmental tibial fracture, trimalleolar ankle fracture status post open reduction and internal fixation. He is set to go home today. He has a cast on. 2. Diabetes mellitus, type 2. Sugar is under good control. 3. Hypertension. 4. Hyperlipidemia. 5. Nutrition is good. He is lined up and set to go home, and he has his medications as well. We are trying to get a copy of his chart. cc: Vince Sheets MD
--- NOTE | 2018-12-31 11:38 | ORTHOPAEDICS PROGRESS NOTE ---
DATE: 12/31/2018 SUBJECTIVE: Mr. Grajeda is a 68-year-old male, who is postoperative from a left trimalleolar ankle fracture with open reduction and internal fixation and a closed reduction and intramedullary nailing of the left tibia. He is doing well and is ready to go home. He has no new complaints. OBJECTIVE: General: He is a well-developed well-nourished male. He is alert, oriented, and cooperative with examination. He is in no acute distress. His left [*]is clean, dry, and intact. ASSESSMENT: Status post open reduction and internal fixation left trimalleolar ankle fracture and intramedullary nailing of the left tibia. PLAN: He is doing very well and he can be discharged home. He is to follow up with a local orthopedist in [place]. Dictated by ANDREZ Stewart for Hao Brown MD cc: ANDREZ Stewart MD
== END 2018-12-31 11:15 | disposition home or self-care (01) | DRG 493 ==
LOC: ED 12:59 → 4N 14:51 → SUATTDRO 14:51
PROVIDERS: ATTEND Emergency Medicine
CPT/HCPCS: 73590; 73600; 76000; 80048; 80053; 81001; 82948; 83036; 85025; 86850; 86900; 86901; 87088; 90471; 90714; 90715; 94761; 94799; 96374; 96375; 97110; 97116; 97162; 97530; 99285; A9270; C1713; J0131; J0330; J0690; J1100; J1170; J1650; J1815; J2370; J2405; J2550; J3010; J7030; J7120; XXXXX